=== PATIENT | male | born 1960 | race Caucasian/White ===

== ENCOUNTER 2019-06-01 11:09 | Emergency (ER) | payer BC, OTHER ==
[2019-06-01] MEDS ORDERED: Diphtheria,Pertussis(Acell),Tetanus Vaccine 0.5 ML SDV IM ONE (11:36)
[2019-06-01] MEDS ORDERED: Lidocaine 2% 5 ML SDV INJECT ONE (11:37)
[2019-06-01] MEDS ORDERED: Bacitracin/Neomycin/Polymyxin B Oint 0.9 GM U/D Packet TOP ONE (12:11)
[2019-06-01 12:28] VITALS: BP 176/90
--- NOTE | 2019-06-01 12:37 | EDM.PDOC ---
ED HPI GENERAL MEDICAL PROBLEM - General Chief Complaint: General Stated Complaint: Finger Injur Time Seen by Provider: 06/01/19 11:10 Source of Information: Reports: Patient History Limitations: Reports: No Limitations - History of Present Illness INITIAL COMMENTS - FREE TEXT/NARRATIVE: Patient is a 59-year-old who was drilling a hole on alternator when Maria R kick back causing a laceration on the distal phalanx lacerating her the extensor tendon patient has a mallet finger. Onset: Today Duration: Minutes:, Constant Location: Reports: Upper Extremity, Left Quality: Reports: Ache, Dull Severity: Severe Improves with: Reports: Immobilization Worsens with: Reports: Movement Context: Reports: Trauma Associated Symptoms: Reports: No Other Symptoms - Related Data Allergies Allergy/AdvReac Type Severity Reaction Status Date / Time adhesive Allergy Rash Verified 06/01/19 11:10 Home Meds: Home Meds metFORMIN [Glucophage XR] 1 tab PO DAILY 05/18/15 [History] Levothyroxine 112 mcg PO ACBREAKFAST 08/17/16 [History] Lisinopril [Prinivil] 20 mg PO DAILY 08/17/16 [History] Metoclopramide [Reglan] 10 mg PO QID PRN 08/17/16 [History] atorvaSTATin Calcium [Atorvastatin Calcium] 10 mg PO BEDTIME 06/01/19 [History] Past Medical History Cardiovascular History: Reports: High Cholesterol, Hypertension Other Cardiovascular History: Hyperlipidemia Gastrointestinal History: Reports: GERD Endocrine/Metabolic History: Reports: Diabetes, Type II, Hypothyroidism Other Endocrine/Metabolic History: Hx. of hyperglycemia - Past Surgical History Other Musculoskeletal Surgeries/Procedures:: Knee dislocation surgery in 2002 Social & Family History - Tobacco Use Smoking Status *Q: Never Smoker ED ROS GENERAL - Review of Systems Review Of Systems: See Below Constitutional: Reports: No Symptoms HEENT: Reports: No Symptoms Respiratory: Reports: No Symptoms Cardiovascular: Reports: No Symptoms Endocrine: Reports: No Symptoms GI/Abdominal: Reports: No Symptoms : Reports: No Symptoms Musculoskeletal: Reports: No Symptoms Skin: Reports: No Symptoms Neurological: Reports: No Symptoms Psychiatric: Reports: No Symptoms Hematologic/Lymphatic: Reports: No Symptoms Immunologic: Reports: No Symptoms ED EXAM, GENERAL - Physical Exam Exam: See Below Exam Limited By: No Limitations General Appearance: Alert, WD/WN, No Apparent Distress Ears: Normal External Exam, Normal Canal, Hearing Grossly Normal, Normal TMs Ear Exam: Bilateral Ear: Auricle Normal, Canal Normal, TM normal Nose: Normal Inspection, Normal Mucosa, No Blood Throat/Mouth: Normal Inspection, Normal Lips, Normal Teeth, Normal Gums, Normal Oropharynx, Normal Voice, No Airway Compromise Head: Atraumatic, Normocephalic Neck: Normal Inspection, Supple, Non-Tender, Full Range of Motion Respiratory/Chest: No Respiratory Distress, Lungs Clear, Normal Breath Sounds, No Accessory Muscle Use, Chest Non-Tender Cardiovascular: Normal Peripheral Pulses, Regular Rate, Rhythm, No Edema, No Gallop, No JVD, No Murmur, No Rub GI/Abdominal: Normal Bowel Sounds, Soft, Non-Tender, No Organomegaly, No Distention, No Abnormal Bruit, No Mass (Male) Exam: No Hernia, Normal Inspection, Normal Prostate, Circumcised Rectal (Males) Exam: Normal Exam, Normal Rectal Tone, Prostate Normal Back Exam: Normal Inspection, Full Range of Motion, NT Extremities: Normal Capillary Refill, Other (Left hand middle finger extensor tendon damage unable to stand that he does have a 1-1/2 cm laceration on the lateral aspect of the finger) Neurological: Alert, Oriented, CN II-XII Intact, Normal Cognition, Normal Gait, Normal Reflexes, No Motor/Sensory Deficits Psychiatric: Normal Affect, Normal Mood Skin Exam: Warm, Dry, Intact, Normal Color, No Rash Lymphatic: No Adenopathy ED GENERAL MEDICAL PROCEDURES - Laceration/Wound Repair Left Lateral Digit - 3rd (Middle) Lac/wound length in cm: 2 Appearance: Subcutaneous, Muscle, Clean Distal NVT: Neuro & Vascular Intact Anesthetic Type: Local Local Anesthesia - Lidocaine (Xylocaine): 2% Plain Local Anesthetic Volume: 3cc Skin Prep: Chlorhexidine (Hibiciens) Exploration/Debridement/Repair: Wound Explored, In a Bloodless Field, Minimal Debridement Closed with: Sutures Suture Type: Nylon Suture Size: 4-0 # of Sutures: 2 Course - Vital Signs Last Recorded V/S: Last Vital Signs Temp 97.1 F 06/01/19 11:10 Pulse 75 06/01/19 11:10 Resp 16 06/01/19 11:10 BP 176/90 H 06/01/19 11:30 Pulse Ox 100 06/01/19 11:10 - Orders/Labs/Meds Orders: Active Orders 24 hr Category Date Time Status Vaccines to be Administered [RC] PER UNIT ROUTINE Care 06/01/19 11:36 Active Hand Comp Min 3V Lt [CR] Stat Exams 06/01/19 11:51 Taken Meds: Medications Discontinued Medications Generic Name Dose Route Start Last Admin Trade Name Yary PRN Reason Stop Dose Admin Diphtheria/Tetanus/Acell Pertussis 0.5 ml 06/01/19 11:36 Adacel IM 06/01/19 11:37 .ONCE ONE Lidocaine 5 ml 06/01/19 11:37 Xylocaine-Mpf 2% INJECT 06/01/19 11:38 ONETIME ONE Neomycin/Polymyxin/Bacitracin 1 each 06/01/19 12:11 Triple Antibiotic Oint TOP 06/01/19 12:12 ONETIME ONE Departure - Departure Time of Disposition: 12:43 Disposition: Home, Self-Care 01 Condition: Fair Clinical Impression: Laceration of finger of left hand with complication - Discharge Information *PRESCRIPTION DRUG MONITORING PROGRAM REVIEWED*: No *COPY OF PRESCRIPTION DRUG MONITORING REPORT IN PATIENT RACHEL: No Instructions: Laceration Care, Adult, Stitches, [place], or Adhesive Wound Closure Referrals: PCP,Unknown [Primary Care Provider] - Care Plan Goals: Patient to set up appointment with Dr. [place] [id number] [phone] patient sent home on Cefzil 500 mg twice a day tenderness is up-to-date last tetanus shot was 2012. - My Orders Last 24 Hours: My Active Orders 06/01/19 11:36 Vaccines to be Administered [RC] PER UNIT ROUTINE 06/01/19 11:51 Hand Comp Min 3V Lt [CR] Stat - Assessment/Plan Last 24 Hours: My Active Orders 06/01/19 11:36 Vaccines to be Administered [RC] PER UNIT ROUTINE 06/01/19 11:51 Hand Comp Min 3V Lt [CR] Stat
== END 2019-06-01 12:55 | disposition home or self-care (01) ==
LOC: LL.ED 11:09
DX: S66.323A Laceration of extensor muscle, fascia and tendon of left middle finger at wrist and hand level, initial encounter (principal); S61.313A Laceration without foreign body of left middle finger with damage to nail, initial encounter; I10 Essential (primary) hypertension; E11.9 Type 2 diabetes mellitus without complications; E03.9 Hypothyroidism, unspecified; E78.5 Hyperlipidemia, unspecified; Z91.09 Other allergy status, other than to drugs and biological substances; Z79.899 Other long term (current) drug therapy; Z79.84 Long term (current) use of oral hypoglycemic drugs; W26.8XXA Contact with other sharp object(s), not elsewhere classified, initial encounter
CPT/HCPCS: 12011; 73130-LT; 90471; 99283-25